=== PATIENT | female | born 1930 | race Caucasian/White ===

== ENCOUNTER 2017-04-08 08:19 | Emergency (ER) | payer BC ==
[~2017-04-08] VITALS: Ht 157.5 cm; Wt 83.1 kg
[2017-04-08] MEDS ORDERED: GABAPENTIN300 MG PO (08:30)
[2017-04-08] MEDS ORDERED: ROPINIROLE HCL1 MG PO (08:31)
[2017-04-08] MEDS ORDERED: HYDROCODON-ACE1 EAC7 PO (08:31)
[2017-04-08 11:42] VITALS: BP 131/73
== END 2017-04-08 11:46 | disposition home or self-care (01) ==
LOC: EME 08:19
PROC: 0SSBXZZ Reposition Left Hip Joint, External Approach (ICD-10-PCS; principal; 2017-04-08)
DX: T84.021A Dislocation of internal left hip prosthesis, initial encounter (principal); Y79.2 Prosthetic and other implants, materials and accessory orthopedic devices associated with adverse incidents; Z96.643 Presence of artificial hip joint, bilateral
CPT/HCPCS: 73501; 73502; 99281; 99285